=== PATIENT | female | born 1995 | race Caucasian/White ===

== ENCOUNTER 2018-09-05 09:04 | Inpatient (IN) | payer MEDICAID, OTHER ==
[2018-09-05] MEDS ORDERED: CARBOPROST 250 MCG INJ IM (11:30)
[2018-09-05] MEDS ORDERED: OXYTOCIN 30 UNITS/LR 500 ML IV ×2 (11:30)
[2018-09-05] MEDS ORDERED: BUTORPHANOL 2 MG INJ IV (11:30)
[2018-09-05] MEDS ORDERED: METHYLERGONOVINE 0.2 MG INJ IM (11:30)
[2018-09-05] MEDS ORDERED: OXYCODONE/ASPIRIN (4.88/325) TAB PO (11:30)
[2018-09-05] MEDS ORDERED: LIDOCAINE 1% (MPF) 30 ML INJ INJ (11:30)
[2018-09-05] MEDS ORDERED: MISOPROSTOL 200 MCG TAB PR (11:30)
[2018-09-05] MEDS: LACTATED RINGER'S 1,000 ML IV ×5 (11:51→21:59)
[2018-09-05 12:05] LABS: ADD MAN DIFF? NO
[2018-09-05 12:08] LABS: BASOPHIL # 0.1 10^3/ul (0.0-0.1); BASOPHILS % 0.4 % (0.0-2.0); EOSINOPHILS # 0.2 10^3/ul (0.0-0.5); EOSINOPHILS % 1.2 % (0.0-7.0); HEMATOCRIT 37.5 % (37.0-47.0); HEMOGLOBIN 11.9 g/dl (12.0-16.0); LYMPHOCYTES # 2.9 10^3/ul (0.8-2.9); LYMPHOCYTES % 16.8 % (15.0-51.0); MEAN CORPUSCULAR HEMOGLOBIN 25.8 pg (29.0-33.0); MEAN CORPUSCULAR HGB CONC 31.7 g/dl (32.0-37.0); MEAN CORPUSCULAR VOLUME 81.2 fl (82.0-101.0); MEAN PLATELET VOLUME 10.7 fl (7.4-10.4); MONOCYTE # 1.2 10^3/ul (0.3-0.9); MONOCYTES % 7.1 % (0.0-11.0); NEUTROPHIL # 12.2 10^3/ul (1.6-7.5); NEUTROPHILS % 71.1 % (39.0-77.0); PLATELET COUNT 271 10^3/UL (140-415); RED BLOOD COUNT 4.62 10^6/ul (4.20-5.40); RED CELL DISTRIBUTION WIDTH 14.8 % (11.5-14.5)
[2018-09-05 12:08] LABS: WHITE BLOOD COUNT 17.1 10^3/ul (4.8-10.8)
[2018-09-05] MEDS ORDERED: FENTAnyl 2MCG/ML-ROPIV 0.2% 100 ML (12:48)
[2018-09-05 12:50] LABS: INR 1.03; PROTIME 13.6 Sec (11.9-14.9); PT RATIO 1.1
[2018-09-05 12:51] LABS: PARTIAL THROMBOPLASTIN TIME 27.7 Sec (23.0-35.0)
[2018-09-05 13:08] LABS: HEPATITIS B SURFACE ANTIGEN NEGATIVE (NEGATIVE)
[2018-09-05] MEDS: OXYTOCIN 30 UNITS/LR 500 ML IV (15:35)
[2018-09-05 22:21] LABS: RAPID PLASMA REAGIN NONREACTIVE (NR)
[2018-09-05] MEDS ORDERED: HYDROmorphONE 0.5 MG/0.5 ML SYG IV ×2 (23:00)
[2018-09-05] MEDS ORDERED: DIPHENHYDRAMINE 50 MG INJ IV (23:00)
[2018-09-05] MEDS ORDERED: NALOXONE (0.4 MG/ML) INJ IV (23:00)
[2018-09-05] MEDS ORDERED: KETOROLAC 30 MG INJ IV (23:00)
[2018-09-05] MEDS ORDERED: ONDANSETRON 4 MG INJ IV (23:00)
[2018-09-05] MEDS: FENTAnyl 2MCG/ML-ROPIV 0.2% 100 ML BAG EPI (23:03)
[2018-09-06] MEDS: FAMOTIDINE 20 MG INJ IV (01:00)
[2018-09-06] MEDS: LACTATED RINGER'S 1,000 ML IV ×2 (04:45→07:29)
[2018-09-06] MEDS: FENTAnyl 2MCG/ML-ROPIV 0.2% 100 ML BAG EPI (05:29)
[2018-09-06] MEDS: MINERAL OIL LIGHT 10 ML VIAL TOP (07:55)
[2018-09-06 08:21] LABS: CBV Base Excess -5.7 mmol/L; CBV COHb 1.8 %; CBV Oxygen Sat 60.8 mmHG; CBV Total Hemglobin 18.2 g/dl; Cord Blood Venous pO2 26.3 mmHG (15.0-45.0); MODE ROOM AIR; MetHgb Cord Venous 1.2 %; Sample Type CBV; Site CORD
[2018-09-06 08:22] LABS: AADO2 Cord Arterial 63.4 mmHg; CBA COHb 0.4 %; CBA Oxygen Sat 20.3 mmHG; CBA Total Hemglobin 17.5 g/dl; Cord Blood Arterial pO2 14.5 mmHG (15.0-45.0); Fraction OxyHgb Cord Arterial 19.8 %; MODE ROOM AIR; MetHgb Cord Arterial 1.9 %; Sample Type CBA; Site CORD
[2018-09-06] MEDS ORDERED: DIBUCAINE 1% 30 GM OINT TOP (08:30)
[2018-09-06] MEDS ORDERED: SENNA/DOCUSATE NA (8.6MG/50MG) TAB PO (08:30)
[2018-09-06] MEDS ORDERED: HYDROCODONE/APAP (5/325) TAB PO (08:30)
[2018-09-06] MEDS ORDERED: DIPHENHYDRAMINE 25 MG CAP PO (08:30)
[2018-09-06] MEDS ORDERED: CARBOPROST 250 MCG INJ IM (08:30)
[2018-09-06] MEDS ORDERED: DIPHENHYDRAMINE 50 MG INJ IV (08:30)
[2018-09-06] MEDS ORDERED: ONDANSETRON 4 MG INJ IV (08:30)
[2018-09-06] MEDS ORDERED: NA PHOSPHATE/BIPHOS 133 ML ENEMA PR (08:30)
[2018-09-06] MEDS ORDERED: MISOPROSTOL 200 MCG TAB PR (08:30)
[2018-09-06] MEDS ORDERED: OXYTOCIN 30 UNITS/LR 500 ML IV (08:30)
[2018-09-06] MEDS ORDERED: ONDANSETRON 4 MG TAB PO (08:30)
[2018-09-06] MEDS ORDERED: MAGNESIUM HYDROXIDE 30ML CUP PO (08:30)
[2018-09-06] MEDS: OXYTOCIN 30 UNITS/LR 500 ML IV ×2 (08:31→12:20)
[2018-09-06] MEDS: SENNA/DOCUSATE NA (8.6MG/50MG) TAB PO ×2 (09:00→21:02)
[2018-09-06] MEDS: HYDROCODONE/APAP (5/325) TAB PO (10:04)
[2018-09-06] MEDS: IBUPROFEN 600 MG TAB PO ×3 (12:00→17:38)
[2018-09-06] MEDS: LACTATED RINGER'S 1,000 ML IV* ×2 (16:19→16:28)
[2018-09-06] MEDS: BENZOCAINE 20% 56 ML SPRAY TOP (17:51)
[2018-09-06] MEDS: WITCH HAZEL/GLYCERIN PAD PR (17:52)
[2018-09-07] MEDS: IBUPROFEN 600 MG TAB PO ×4 (00:04→17:26)
[2018-09-07] MEDS: LACTATED RINGER'S 1,000 ML IV* (00:28)
[2018-09-07] MEDS: SENNA/DOCUSATE NA (8.6MG/50MG) TAB PO ×2 (08:28→21:27)
[2018-09-07 08:46] LABS: ADD MAN DIFF? NO
[2018-09-07 08:54] LABS: BASOPHIL # 0.1 10^3/ul (0.0-0.1); BASOPHILS % 0.5 % (0.0-2.0); EOSINOPHILS # 0.3 10^3/ul (0.0-0.5); EOSINOPHILS % 1.2 % (0.0-7.0); HEMATOCRIT 36.8 % (37.0-47.0); HEMOGLOBIN 11.5 g/dl (12.0-16.0); LYMPHOCYTES # 3.8 10^3/ul (0.8-2.9); MEAN CORPUSCULAR HGB CONC 31.3 g/dl (32.0-37.0); MEAN CORPUSCULAR VOLUME 83.3 fl (82.0-101.0); MONOCYTE # 1.4 10^3/ul (0.3-0.9); MONOCYTES % 6.3 % (0.0-11.0); NEUTROPHIL # 16.3 10^3/ul (1.6-7.5); NEUTROPHILS % 72.5 % (39.0-77.0); PLATELET COUNT 244 10^3/UL (140-415); RED BLOOD COUNT 4.42 10^6/ul (4.20-5.40); RED CELL DISTRIBUTION WIDTH 15.2 % (11.5-14.5)
[2018-09-07 08:54] LABS: WHITE BLOOD COUNT 22.4 10^3/ul (4.8-10.8)
[2018-09-08] MEDS: IBUPROFEN 600 MG TAB PO ×3 (00:06→12:00)
[2018-09-08] MEDS: BENZOCAINE 20% 56 ML SPRAY TOP (00:14)
[2018-09-08] MEDS: LANOLIN HPA 1 PKT TOP (00:15)
[2018-09-08] MEDS: WITCH HAZEL/GLYCERIN PAD PR (00:15)
[2018-09-08 06:51] LABS: ADD MAN DIFF? NO
[2018-09-08 06:57] LABS: BASOPHIL # 0.1 10^3/ul (0.0-0.1); BASOPHILS % 0.6 % (0.0-2.0); EOSINOPHILS # 0.3 10^3/ul (0.0-0.5); EOSINOPHILS % 1.8 % (0.0-7.0); HEMATOCRIT 33.9 % (37.0-47.0); HEMOGLOBIN 10.7 g/dl (12.0-16.0); LYMPHOCYTES # 3.5 10^3/ul (0.8-2.9); LYMPHOCYTES % 20.3 % (15.0-51.0); MEAN CORPUSCULAR HEMOGLOBIN 25.9 pg (29.0-33.0); MEAN CORPUSCULAR HGB CONC 31.6 g/dl (32.0-37.0); MEAN CORPUSCULAR VOLUME 82.1 fl (82.0-101.0); MEAN PLATELET VOLUME 10.5 fl (7.4-10.4); MONOCYTE # 1.1 10^3/ul (0.3-0.9); MONOCYTES % 6.7 % (0.0-11.0); NEUTROPHIL # 11.5 10^3/ul (1.6-7.5); NEUTROPHILS % 67.4 % (39.0-77.0); PLATELET COUNT 244 10^3/UL (140-415); RED BLOOD COUNT 4.13 10^6/ul (4.20-5.40); RED CELL DISTRIBUTION WIDTH 15.1 % (11.5-14.5)
[2018-09-08] MEDS: VARICELLA VACCINE LIVE/PF 1,350 UNIT/0.5 ML ML SC* (09:00)
[2018-09-08] MEDS: MEASLES,MUMPS,RUBELLA VACCINE INJ SC* (09:00)
[2018-09-08] MEDS: DIPHTH/TET/ACEL PERTUSS (ADULT) 0.5 ML VIAL IM* (09:00)
[2018-09-08] MEDS: SENNA/DOCUSATE NA (8.6MG/50MG) TAB PO (10:09)
== END 2018-09-08 15:11 | disposition home or self-care (01) | DRG 807 ==
LOC: OBT 09:04 → L-D 09:04 → PP1 09-06 16:20 → OBT 11:11 → L-D 11:10
PROVIDERS: Specialist
PROC: 10E0XZZ Delivery of Products of Conception, External Approach (ICD-10-PCS; principal; 2018-09-06)
PROC: 0HQ9XZZ Repair Perineum Skin, External Approach (ICD-10-PCS; 2018-09-06)
DX: O70.0 First degree perineal laceration during delivery (principal); Z37.0 Single live birth; Z3A.38 38 weeks gestation of pregnancy
CPT/HCPCS: 36415; 36600; 82803; 85025; 85610; 85730; 86592; 86850; 86900; 86901; 87340; 90716; 99464